=== PATIENT | male | born 1970 | race Caucasian/White ===

== ENCOUNTER → 2022-11-23 | Outpatient (CLI) | payer OTHER ==
--- NOTE | 2022-11-25 15:48 | MR ---
EXAMINATION TYPE: MR abdomen wo/w con DATE OF EXAM: 11/23/2022 9:29 AM INDICATION: Patient age:Male; 52 years old; Reason for study: K70.30 ALCOHOLIC CIRRHOSIS OF JANETH;. ALCOHOLIC CIRRHOSIS OF LIVER COMPARISON: None TECHNIQUE: Multiplanar multi-sequence imaging was performed without contrast. Post contrast imaging was performed. Post IV contrast subtraction images were also submitted for review. IV Contrast: 13 cc Gadavist FINDINGS: LOWER CHEST: No gross irregularity. ABDOMEN Liver: Motion limited exam. The liver contour is relatively smooth. Minimal dropout of signal on out of phase imaging. No evidence for arterial phase hyperenhancement, washout or pseudocapsule. No dilated ducts. Gallbladder and Bile ducts: Low T1/T2 signal choleliths in the gallbladder lumen. Pancreas: Unremarkable. Spleen: Nonenlarged. Adrenal glands: Unremarkable. Kidneys: Right renal subcentimeter cysts. No hydronephrosis. Stomach and Bowel: Unremarkable as visualized. Peritoneum: No evidence of pneumoperitoneum, free fluid, or adenopathy. Vasculature: Unremarkable. No aortic aneurysm. Musculoskeletal: The osseous structures appear intact. Abdominal wall: Unremarkable. IMPRESSION: 1. Hepatic steatosis without evidence for lesion that needs HCC criteria. 2. Cholelithiasis.
== END | disposition home or self-care (01) ==
LOC: RADMRIMAIN 08:33
PROVIDERS: ATTEND Physician Assistant
DX: K76.0 Fatty (change of) liver, not elsewhere classified (principal); K80.20 Calculus of gallbladder without cholecystitis without obstruction; K70.30 Alcoholic cirrhosis of liver without ascites
CPT/HCPCS: 74183; A9585